=== PATIENT | female | born 1975 | race Two or more races ===

== ENCOUNTER 2017-07-17 19:36 | Emergency (ER) | payer OTHER ==
[~2017-07-17] VITALS: Ht 157.5 cm; Wt 43.9 kg
[2017-07-17 20:16] LABS: HEMATOCRIT 46.1 % (34.6-47.8); WHITE BLOOD COUNT 8.8 x10^3/uL (3.4-10)
[2017-07-17 20:28] LABS: BLOOD UREA NITROGEN 12 mg/dL (7-18)
[2017-07-17 21:49] VITALS: BP 122/80
== END 2017-07-17 21:54 | disposition home or self-care (01) ==
LOC: ED 21:38
DX: O03.9 Complete or unspecified spontaneous abortion without complication (principal)
CPT/HCPCS: 36415; 76801; 80048; 82040; 84702; 85025; 86901; 99285